=== PATIENT | male | born 1970 | race African-American/Black ===

== ENCOUNTER 2022-02-15 07:52 | Day surgery (SDC) | payer OTHER ==
[2022-02-14 12:38] VITALS: BMI 28.2
[2022-02-15] MEDS ORDERED: LIDOCAINE HCL/PF 2% SDV 5ML VIAL ONE (09:11)
[2022-02-15] MEDS ORDERED: PROPOFOL 40 ML ONE (09:11)
[2022-02-15 09:49] VITALS: RESP 16; TEMP 97.6
[2022-02-15 09:55] VITALS: BP 117/71; PULSE 75
== END 2022-02-15 10:00 | disposition home or self-care (01) ==
LOC: FASU-ENDO 07:52
PROVIDERS: ATTEND Internal Medicine Gastroenterology
PROC: 0DJD8ZZ Inspection of Lower Intestinal Tract, Via Natural or Artificial Opening Endoscopic (ICD-10-PCS; principal; 2022-02-15 09:11)
DX: Z12.11 Encounter for screening for malignant neoplasm of colon (principal); K57.30 Diverticulosis of large intestine without perforation or abscess without bleeding